=== PATIENT | male | born 1950 | race Asian ===

== ENCOUNTER 2020-01-08 09:25 | Emergency (ER) | payer BC ==
[2020-01-08 09:36] VITALS: BP 140/95
--- NOTE | 2020-01-08 10:20 | ED ---
Throat Pain/Nasal Congestion - HPI Summary HPI Summary: 69 yo here for right ear cerumen removal, denies changes in hearing or any other abnl's - History of Current Complaint Chief Complaint: UCEar Time Seen by Provider: 01/08/20 09:47 Hx Obtained From: Patient Onset/Duration: Lasting Days Severity: Moderate Associated Signs And Symptoms: Positive: Negative - Epiglottits Risk Factors Epiglottis Risk Factors: Negative - Allergies/Home Medications Allergies/Adverse Reactions: Allergies Allergy/AdvReac Type Severity Reaction Status Date / Time levofloxacin Allergy Hallucinations Verified 01/08/20 09:36 and right eye problems Home Medications: Home Medications Ascorbic Acid TAB* [Vitamin C TAB*] 1,000 mg PO DAILY 12/15/17 [History Confirmed 01/08/20] Aspirin EC TAB* [Ecotrin EC Low Dose 81 MG*] 81 mg PO DAILY 12/15/17 [History Confirmed 01/08/20] PMH/Surg Hx/FS Hx/Imm Hx Previously Healthy: Yes Infectious Disease History: No Infectious Disease History: Denies: Traveled Outside the [place] in Last 30 Days - Family History Known Family History: Positive: Non-Contributory - Social History Alcohol Use: None Substance Use Type: Reports: None Smoking Status (MU): Never Smoked Tobacco Review of Systems Constitutional: Negative Eyes: Negative ENT: Other - right cerumen impaction Cardiovascular: Negative Respiratory: Negative Gastrointestinal: Negative Genitourinary: Negative Musculoskeletal: Negative Skin: Negative Neurological/Mental Status: Negative All Other Systems Reviewed And Are Negative: Yes Physical Exam - Summary Physical Exam Summary: Vital Signs Reviewed: Yes Eye Exam: Normal Eyes: Positive: Conjunctiva Clear ENT: Positive:right cerumen impaction Neck: Positive: Supple Respiratory Exam: Normal Respiratory: Positive: Lungs clear, Normal breath sounds. Negative: Crackles, Rhonchi, Stridor, Wheezing Cardiovascular Exam: Normal, RRR, S1, S2 Abdomen: NT/ND Musculoskeletal Exam: Normal Neurological Exam: Normal Psychological Exam: Normal Skin Exam: Normal Triage Information Reviewed: Yes Vital Signs On Initial Exam: Initial Vitals Temp Pulse Resp BP Pulse Ox 36.6 C 93 16 140/95 100 01/08/20 09:33 01/08/20 09:33 01/08/20 09:33 01/08/20 09:33 01/08/20 09:33 Diagnostics - Vital Signs Vital Signs Temp Pulse Resp BP Pulse Ox 01/08/20 09:33 36.6 C 93 16 140/95 100 - Laboratory Lab Statement: Any lab studies that have been ordered have been reviewed, and results considered in the medical decision making process. EENT Course/Dx - Course Assessment/Plan: cerumen removed via irrigation - Diagnoses Provider Diagnoses: Cerumen impaction Discharge ED - Sign-Out/Discharge Documenting (check all that apply): Patient Departure All imaging exams completed and their final reports reviewed: No Studies - Discharge Plan Condition: Stable Disposition: HOME Patient Education Materials: Cerumen Impaction (ED) Referrals: Caesar Franklin MD [Primary Care Provider] - - Billing Disposition and Condition Condition: STABLE Disposition: Home
== END 2020-01-08 10:23 | disposition home or self-care (01) ==
LOC: UCEAST 09:25
DX: H61.21 Impacted cerumen, right ear (principal); Z79.82 Long term (current) use of aspirin; Z88.1 Allergy status to other antibiotic agents
CPT/HCPCS: 99212; G0463